=== PATIENT | male | born 1965 ===

== ENCOUNTER 2025-01-01 10:16 | Outpatient (AMB) | payer OTHER, SELFPAY ==
--- OUTSIDE RECORDS SUMMARY | 2024-12-30 09:15 | XMS_ITS | Encounter Summary ---
Author Organization [facility] Address [address] [place] [address] Care Team Providers Care Audio Visual Arts Director Name Role Phone Isis Hammer MD Primary Care Provider [phone] Reason for Visit * Consultation (Urgent) - Authorized Specialty Diagnoses / Procedures Referred By Gladys valencia Referred To Contact Occupational Therapy Diagnoses Surgery follow-up Right lateral epicondylitis Paula Donahue PA [address] [place] [address] Phone: tel: fax: Referral ID Status Reason Start Date Expiration Date Visits Requested Visits Authorized [id number] Authorized Specialty Services Required 12/11/2024 12/11/2025 1 20 Encounter Details Date Type Department Care Team ([facility] st Contact Info) Description 12/30/2024 9:15 AM EDT Treatment [facility] Occupational Therapy [address] [phone] Dinorah Araiza COTA/L Surgery follow-up (Primary Dx); Right lateral epicondylitis Social History Tobacco Use Types Packs/Day Years Used Date Smoking Tobacco: Never Smokeless Tobacco: Never Alcohol Use Standard Drinks/Week Comments No 0 (1 standard drink = 0.6 oz pur e alcohol) Housing Instability Answer Date Recorde d Are you worried that in the next 2 months you may not have stable housing? No 11/13/2024 Food Access & Nutrition Answer Date Rec orded Do you have access to a vari ety of food including fruits and vegetables? No 11/13/2024 Health Literacy Answer Date Recorded How often do you need to hav e someone help you when you read instructions, pamphlets, or other written material from your doctor or pharmacy? Never 11/13/2024 Caregiver: How often do you need to have someone help you when you read instructions, pamphlets, or other written material from your doctor or pharmacy? Not on file 11/13/2024 Financial Risk Answer Date Recorded How hard is it for you to pa y for the very basics like food, housing, medical care, and air conditioning / heating? Not very hard 11/13/2024 Transportation Answer Date Recorded Has the lack of transportati on kept you from meetings, work, or from getting things needed for daily living? No Has the lack of transportati on kept you from medical appointments or from getting medications? No 11/13/2024 Social Isolation Answer Date Recorded How often do you feel lonely or isolated from th ose around you? Never 11/13/2024 Food Risk Answer Date Recorded Within the past 12 months we worried whether our food would run out before we got money to buy more. Never true 11/13/2024 Within the past 12 months th e food we bought just didn't last and we didn't have money to get more. Never true 11/13/2024 Dependent Care Answer Date Recorded Do you need help finding or paying for care for your loved ones. For example, early childhood associate or elderly care for an older adult? No 11/13/2024 Education Answer Date Recorded Do you think completing more education or training, like finishing a GED, going to college, or learning a trade, would be helpful for you? No 11/13/2024 Employment and Income Answer Date Recor ded During the last four weeks, have you been actively looking for work? No 11/13/2024 Living Situation Answer Date Recorded What is your living situation? Unrecognized valu e 11/13/2024 Interpersonal Safety Answer Date Record ed Physical Abuse Unrecognized value 11/26/2024 Verbal Abuse Unrecognized value 11/26/2024 Sex and Gender Information Value Date Recorded Sex Assigned at Male 04/07/2023 10:17 AM EST Legal Sex Male 8:50 AM EST Gender Identity Male 04/07/2023 10:17 AM EST Sexual Orientation Straight 04/07/2023 10 :17 AM EST documented as of this encounter Progress Notes * ROSE Ponce 12/30/2024 9:15 AM EDT [facility] - Outpatient OCCUPATIONAL THERAPY DAILY TREATMENT NOTE Date: 12/30/2024 Visit Number: [id number] Patient Name: Johny Carrillo : 1965 Age: 59 y.o. Gender: male Diagnosis: ICD-10-CM ICD-9-CM 1. Surgery follow-up Z09 V67.00 2. Right lateral epicondylitis M77.11 726.32 Date of Onset: 12/05/2024 Referring Provider: Paula Donahue PA Insurance: [facility] / Plan: [facility] / Product Type: *No Product type* / Language: Pt. speaks english as preferred language, however declines spanish medical interpreter Medications: Medications Ordered Prior to Encounter[1] Allergies: has no known allergies. Precautions: ROM, sling for comfort , minimize Wbing Is the patient at Risk for Falls:N SUBJECTIVE Subjective Report: I use the sling sometimes for outside, but not all them time. Chart Reviewed: Yes Pain: 08/26 TREATMENT INTERVENTION Procedures: Modalities- U/S to R lateral elbow. 0.5 at 50% 3.3 MHz, x 8 minutes. Therex- wrist flex/ext, pro/sup -Shoulder retraction, backwards circles 3x10 -scar massage -towel slides on the way for ext/flex, circles, side to side 3x10- educated to perform for HEP for increased ROM. Theract- reaching for silverware outside base of support to increase reach/ROM and placing into tray -opening cabinet taking out bowl, and closing cabinet. Repeated x10 for entire stack of bowls. For functional carryover of home management tasks. No increase in pain noted however fatigued. Pain Reassessment: no change- offered ice at end of session, patient declined. Assessment/Response To Treatment: Good Patient tolerated session well, no increase in pain throughout however fatigued at end of session. Patient Education: Education provided: Yes Education Provided To: Patient utilizing Explanation mode(s) of education Response to Education: Good PLAN POC Development/Review: No Change in the Plan of Care; Participants: Patient Equipment Recommended: none; Equipment Provided: none Total Treatment Time: 45 TOTAL TREATMENT TIME: 45 Minutes Documentation completed by ROSE Ponce [1] Current Outpatient Medications on File Prior to Visit Medication Sig Dispense Refill acetaminophen (TYLENOL 8 HOUR) 650 mg 8 hr tablet Take 1 tablet (650 mg total) by mouth every 8 (eight) hours if needed for mild pain. Do not crush, chew, or split. 30 tablet 0 hydroCHLOROthiazide (MICROZIDE) 12.5 mg capsule Take 1 capsule (12.5 mg total) by mouth 1 (one) time each day in the morning. 90 capsule 1 losartan (COZAAR) 50 mg tablet Take 1 tablet (50 mg total) by mouth 1 (one) time each day. 90 tablet 1 omeprazole (PriLOSEC) [address] capsule Take 1 capsule (20 mg total) by mouth 1 (one) time each day.90 capsule 1 sertraline (ZOLOFT) 100 mg tablet Per [address] SUMAtriptan (IMITREX) 50 mg tablet 1 tablet (50 mg total). tamsulosin (FLOMAX) 0.4 mg 24 hr capsule TAKE 1 CAPSULE IN THE EVENING 90 capsule 1 traZODone (DESYREL) 100 mg tablet Per [address] No current facility-administered medications on file prior to visit. documented in this encounter Plan of Treatment Upcoming Encounters Date Type Department Care Team (Late st Contact Info) Description 01/06/2025 11:15 AM EDT Office Visit Orthopedic Surgery - [place] [address] [facility] [address] [place] [phone] Betsy Eller MD [address] [place] [phone] 03/18/2025 8:45 AM EST Office Visit Adult Medicine [address] [phone] Isis Hammer MD [address] [place], [place] documented as of this encounter Goals Goal Patient Goal Type Associated Problems Recent Progress Patient-Stated? Author OT pt goals General Yes Allie Leiva OT Note: To be able to use R arm normally OT STGs - 6 visits General Yes Allie Leiva OT Note: 1- pt will report increased function and decreased symptoms as seen by a 15 point improvement in the QD 2- pt will demo full AROM at the elbow 3- pt will demo at least 120 sh flex/abd for reaching 4- pt will demo at least a 15# news camera person to open containers OT LTGs 12 visits General Yes Allie Leiva OT Note: 1- pt will report increased function and decreased symptoms as seen by a QD of less than 20 2- pt will be able to carry a shopping demo adequate strength with elbow flexion 3- pt will demo WFL shoulder ROM/strength to reach to put clothes/dishes away 4- pt will demo at least 50% news camera person as compared to the L dominant hand documented as of this encounter Visit Diagnoses Diagnosis Surgery follow-up- Primary Right lateral epicondylitis documented in this encounter Additional Health Concerns Assessment Noted Time PHQ-9 Depression Total Score: 0 11/14/19 25 8:23 AM EDT documented as of this encounter Care Teams Audio Visual Arts Director Relationship Specialty Start Date End Date Isis Hammer MD [address], [place] PCP - General 05/26/22 documented as of this encounter
--- NOTE | 2025-01-01 10:26 | A.OFFVIS_ITS ---
Intake Visit Reasons: 6M Migraine Assistant Auditor Required: Yes Assistant Auditor Name: #[id number] Allergies No Known Allergies Allergy (Verified 01/01/25 10:26) Medication List - Last Reconciled 01/01/25 by Floridalma Cardenas CNP hydrochlorothiazide 12.5 mg PO QAM hydroxyzine HCl 25 mg PO BID PRN losartan 50 mg PO DAILY omeprazole 20 mg PO DAILY sertraline 100 mg PO DAILY sildenafil 50 mg PO DAILY sumatriptan succinate 50 mg PO tamsulosin mg PO trazodone 100 mg PO BEDTIME HPI Comments Details: 59-year-old man with hypertension, insomnia, depression, and migraines. He had family history of aneurysm in his younger brother and in one sister. He had CTA of brain at [facility] in June 2023 which was okay. He was doing okay.?He had few migraines a month, about 2x/month. He was using sumatriptan as needed which helped. Mood was okay. Sleep was okay. [facility] Medical History (Updated 01/01/25 @ 10:30 by Floridalma Cardenas CNP) Insomnia Depression GERD (gastroesophageal reflux disease) Hypertension Family History (Updated 01/01/25 @ 10:32 by Floridalma Cardenas CNP) Brother Cerebral aneurysm Sister Cerebral aneurysm Review of Systems Const Denies chills, Denies daytime sleepiness, Denies difficulty sleeping, Denies fatigue, Denies fever(s), Denies frequent falls, Reports headache(s), Denies increased appetite, Denies poor appetite, Denies snoring, Denies weakness, Denies weight gain and Denies weight loss Eyes Denies loss of vision ENT Denies vertigo, Denies dizziness and Reports headache(s) Card Denies chest pain at rest, Denies chest pain with activity, Denies syncope, Denies leg edema and Denies palpitations Resp Denies snoring GI Denies constipation, Denies heartburn, Denies diarrhea and Denies nausea Denies urinary frequency, Denies urinary incontinence and Denies urinary urgency Musc Denies abnormal gait, Denies numbness and Denies tingling Skin/Breast Denies dry skin and Denies rash Neuro Denies abnormal gait, Denies vertigo, Denies dizziness, Denies syncope, Denies frequent falls, Reports headache(s), Denies lack of coordination, Denies loss of vision, Denies memory loss, Denies numbness, Denies restless legs, Denies seizure-like activity, Denies tingling, Denies paresthesias, Denies tremor(s) and Denies weakness Psych Reports anxiety, Reports depression, Denies auditory hallucinations, Denies memory loss, Denies visual hallucinations and Denies suicidal ideation Endo Denies fatigue and Denies palpitations Physical Exam Const Other: General Appearance:? normal, in no acute distress. Skin:? no rashes, no significant birthmarks. Heart:? S1, S2 normal, no murmurs. Lungs:? clear anteriorly and posteriorly. Extremities:? no edema. Psych:? alert, oriented, cognitive function intact, cooperative with exam. Neuro Other: Mental Status:?Normal attention, orientation, memory and affect.? Cranial Nerves:?Pupils are equal, round and reactive to light. External occular muscles are intact. Visual gee are full. Face is symmetrical. Facial sensations are normal. Tongue is midline. Palate elevates symmetrically. Shoulder shrugging is normal. Hearing to bedside conversation is normal. Sensory Exam:?....? Coordination:?No ataxia,?no titubation.? Gait Exam: Within normal limits. Cerebellar Signs:?[id number] is okay. Extrapyramidal System:?No tremor, rigidity with normal facial expressions.? Pronator Drift:?Not present.? Involuntary Movements:?No tremors seen.? Speech:?Normal.? Results Reviewed Results Reviewed: CT brain WO at [facility] in Apr 2022: Mild cerebellar atrophy CTA brain at [facility] in Jun 2023: WNL Assessment & Plan Assessment & Plan (1) Migraine without aura: Code(s): G43.009 - Migraine without aura, not intractable, without status migrainosus Category: Medical Qualifiers: Status migrainosus presence: without status migrainosus Intractability: not intractable Qualified Code(s): G43.009 - Migraine without aura, not intractable, without status migrainosus Plan: Continue sumatriptan 50mg 1 tablet as needed for migraines. (2) Family history of cerebral aneurysm: Comment: CTA of brain at [facility] in June 2023 was okay Code(s): Z82.49 - Family history of ischemic heart disease and other diseases of the circulatory system Category: Medical Plan . Medications: New sumatriptan succinate take 1 tab at onset of headache; if no relief may repeat 1 tab after at least 2 hrs; PO 10 tabs 5RF 30 days Discontinued sumatriptan succinate Discontinued Reason: Order 50 mg PO Coding Level of Care Code Est Pt Level 3 (35855) Diagnoses Migraine without aura and without status migrainosus, not intractable G43.009 Status migrainosus presence: without status migrainosus Intractability: not intractable Family history of cerebral aneurysm Z82.49
--- OUTSIDE RECORDS SUMMARY | 2025-01-01 12:40 | XMS_ITS | Clinical Summary ---
Author Organization [facility] Address [address] [place] [address] Care Team Providers Care Rubber Flap Tuber Machine Operator Name Role Phone Milton Parsons MD Primary Care Provider [phone] Allergies No known active allergies Medications Medication Sig Dispensed Refills Start Date End Date Status losartan (COZAAR) tablet 50 mg Take 50 mg by mouth daily. 0 Active omeprazole (PRILOSEC) 20 MG capsule Take 20 mg by mouth daily. 0 Active meloxicam (MOBIC) 15 MG tablet TOME JOANNA TABLETA POR VIA ORAL TODOS [place] 0 10/03/2016 Active sertraline (ZOLOFT) 50 MG tablet TAKE 1/2 TAB BY MOUTH ONCE DAILY FOR 1 WEEK THEN 1 TAB BY MOUTH ONCE DAILY 5 01/02/2019 Active naproxen (NAPROSYN) 500 MG tablet TOME JOANNA TABLETA POR V?A ORAL DOS VECES AL D?A CUANDO SEA NECESARIO FOR PAIN 0 11/05/2018 Active losartan-hydrochloro thiazide (HYZAAR) 50-12.5 MG per tablet Take 1 tablet by mouth. 0 11/25/2018 Active traZODone (DESYREL) 50 MG tablet TOME JOANNA TABLETA TODOS LOS D? AL ACOSTARSE CUANDO SEA NECESARIO 2 02/07/2019 Active naproxen (NAPROSYN) 500 MG tablet Take 1 tablet (500 mg total) by mouth 2 (two) times a day with meals. 60 tablet 2 02/24/2019 Active Active Problems Problem Noted Date Diagnosed Date Chronic right shoulder pain 04/01/2018 Overweight (BMI 25.0-29.9) 05/30/2017 Complete tear of right rotator cuff 12/19/2016 Functional diarrhea 03/15/2009 Overview: Overview: Negative work up 2008 Essential hypertension 01/03/2006 GERD (gastroesophageal reflux disease) 6 Family History Medical History Relation Name Comments Diabetes Brother Diabetes Mother Diabetes Sister Relation Name Status Comments Brother high cholestero l Mother high cholestero l Sister high cholestero l Social History Tobacco Use Types Packs/Day Years Used Date Smoking Tobacco: Never Smokeless Tobacco: Never Alcohol Use Standard Drinks/Week Comments No 0 (1 standard drink = 0.6 oz pur e alcohol) Sex and Gender Information Value Date Recorded Sex Assigned at Not on file Gender Identity Not on file Sexual Orientation Not on file Job Start Date Occupation Industry Not on file Not on file Not on file Last Filed Vital Signs Vital Sign Reading Time Taken Comments Blood Pressure 141/93 04/05/2016 11:09 AM EST Pulse 65 04/05/2016 11:09 AM EST Temperature 36 C (96.8 F) 04/05/2016 10:38 AM EST Respiratory Rate 16 04/05/2016 11:09 AM EST Oxygen Saturation 96% 04/05/2016 11:09 AM EST Inhaled Oxygen Concentration - - Weight 76.2 kg (168 lb) 04/21/2019 8:56 AM EST Height 165.1 cm (5' 5 ) 04/21/2019 8:56 AM EST Body Mass Index 27.96 04/21/2019 8:56 AM EST Plan of Treatment Health Maintenance Due Date Last Done Comments Hepatitis B Vaccines (1 of 3 - 3-dose series) 1965 Hepatitis C Screening 1965 COVID-19 Vaccine (#1) 1965 Depression Screening 1977 BMI Counseling 1983 Preventative Health Evaluation 1983 Colon Cancer Screening (Colonoscopy) 2010 Shingrix-Zoster Vaccine (1 of 2) 2015 DTap / Tdap / Td (2 - Td or Tdap) 03/29/2017 03/29/2007 Influenza Vaccine (#1) 2024 9, 01/01/2018, 12/30/2015, Additional history exists Pneumococcal Vaccine Aged Out No long er eligible based on patient's age to complete this topic RSV Ped < 20 months Aged Out No longe r eligible based on patient's age to complete this topic Medical Devices Implanted Type Area Hand Paster Device Identifier Shelf Expiration Date Model / Serial / Lot [place] Sut 5.5mm Fullthrd Med Insite Preld Frc Fbr Sprt Peek - [id number] - [id number] Implanted:Qty : 1 on 04/05/2016 by Tramaine Khan MD at [facility] and Med Right: Shoulder [employer] 02/15/2017 [id number] / / [id number] Care Teams Rubber Flap Tuber Machine Operator Relationship Specialty Start Date End Date Milton Parsons MD [address] [place] [address] PCP - General Internal Medicine 03/31/16
--- OUTSIDE RECORDS SUMMARY | 2025-01-01 12:40 | XMS_ITS | Clinical Summary ---
Author Organization 175 [facility] Address [address] [place] [address] Phone Care Team Providers Care Site Safety Representative Name Role Phone Isis Hammer MD Primary Care Provider [phone] Allergies No known active allergies Medications sertraline (ZOLOFT) 100 mg tablet Per [address] 0 Active traZODone (DESYREL) 100 mg tablet Per [address] 0 Active SUMAtriptan (IMITREX) 50 mg tablet 1 tablet (50 mg total). 4 Active tamsulosin (FLOMAX) 0.4 mg 24 hr capsuleIndication s:Benign prostatic hyperplasia with lower urinary tract symptoms TAKE 1 CAPSULE IN THE EVENING 90 capsule 1 5 Active acetaminophen (TYLENOL 8 HOUR) 650 mg 8 hr tabletIndications :Right lateral epicondylitis Take 1 tablet (650 mg total) by mouth every 8 (eight) hours if needed for mild pain. Do not crush, chew, or split. 30 tablet 5 Active hydroCHLOROthiazi de (MICROZIDE) 12.5 mg capsuleIndication s:Essential (primary) hypertension Take 1 capsule (12.5 mg total) by mouth 1 (one) time each day in the morning. 90 capsule 1 5 Active losartan (COZAAR) 50 mg tabletIndications :Essential (primary) hypertension Take 1 tablet (50 mg total) by mouth 1 (one) time each day. 90 tablet 1 5 Active omeprazole (PriLOSEC) [address] capsuleIndication s:Gastro-esophage al reflux disease without esophagitis Take 1 capsule (20 mg total) by mouth 1 (one) time each day. 90 capsule 1 5 Active acetaminophen (TYLENOL 8 HOUR) 650 mg 8 hr tablet Take 1 tablet (650 mg total) by mouth every 8 (eight) hours if needed for mild pain. Do not crush, chew, or split. 30 tablet 5 12/24/19 25 Discontin ued(Dupli sue order) oxyCODONE (ROXICODONE) 5 mg immediate release tablet Take 1 tablet (5 mg total) by mouth every 6 (six) hours if needed for severe pain for up to 12 doses. Max Daily Amount: 20 mg 12 tablet 5 12/24/19 25 Discontin ued(Thera py completed ) ondansetron (ZOFRAN) 4 mg tablet Take 1 tablet (4 mg total) by mouth every 8 (eight) hours if needed for nausea or vomiting for up to 7 doses. 7 tablet 5 12/24/19 25 Discontin ued(Thera py completed ) Active Problems Problem Noted Date Diagnosed Date Right lateral epicondylitis 01/29/2024 Mass of skin of right hand 12/20/2023 Left lateral epicondylitis 01/02/2022 Overview (01/29/2024): Patient reports that he had arthroscopic surgery on the left elbow about 10 or 12 years ago for lateral epicondylitis. Cyst of left kidney 03/23/2021 Chronic right shoulder pain 04/01/2018 Overweight (BMI 25.0-29.9) 05/30/2017 Functional diarrhea 03/15/2009 Overview (12/20/2023): Negative work up 2008 Essential hypertension 01/03/2006 GERD (gastroesophageal reflux disease) 6 Depression Encounters Date Type Department Care Team Description 12/30/2024 9:15 AM EDT Treatment [facility] Occupational Therapy [address] [phone] Dinorah Araiza COTA/Trevor Surgery follow-up (Primary Dx); Right lateral epicondylitis 12/25/2024 9:15 AM EDT Treatment [facility] Occupational Therapy [address] [phone] Dana Freeman, XAVI Surgery follow-up (Primary Dx); Right lateral epicondylitis 12/23/2024 3:00 PM EDT Office Visit [address] [phone] Ted Oquendo PA Arthralgia of right temporomandibular joint (Primary Dx) 12/23/2024 9:45 AM EDT Treatment [facility] Occupational Therapy [address] [phone] Dana Freeman, HURLEY Surgery follow-up (Primary Dx); Right lateral epicondylitis 12/18/2024 9:15 AM EDT Treatment [facility] Occupational Therapy [address] [phone] Dana Freeman, XAVI Surgery follow-up (Primary Dx); Right lateral epicondylitis 12/16/2024 10:00 AM EDT Treatment [facility] Occupational Therapy [address] [phone] Dana Freeman, XAVI Surgery follow-up (Primary Dx); Right lateral epicondylitis 12/12/2024 1:30 PM EDT Evaluation [facility] Occupational Therapy [address] [address] Allie Leiva, OT Surgery follow-up; Right lateral epicondylitis 12/12/2024 Plan of Care Documentation [facility] Occupational Therapy [address] [phone] 12/11/2024 Telephone Orthopedic Surgery - [place] [address] [address] [phone] Betsy Eller MD 12/05/2024 11:30 AM EDT Office Visit Orthopedic Surgery - [place] 175 [facility] [address] [place] [phone] Paula Donahue PA Surgery follow-up (Primary Dx) 11/26/2024 10:33 AM EDT Anesthesia Event [facility] Main OR [address] [place] [address] Miesha Mar MD Chang, Ling [facility] 11/26/2024 10:30 AM EDT - 11/26/2024 12:30 PM EDT Surgery [facility] Main OR [address] [place] [address] Betsy Eller MD Right Lateral Epicondyle Debridement elbow [93636 (CPT ) +1 more] 11/26/2024 8:56 AM EDT - 11/26/2024 2:24 PM EDT Hospital Encounter [facility] Main OR [address] [place] [address] Betsy Elelr MD Right lateral epicondylitis Discharge Disposition: Home or Self Care 11/26/2024 7:20 AM EDT - 11/26/2024 11:59 PM EDT Hospital Encounter [facility] Xray [address] [place] [phone] Pain Discharge Disposition: Home or Self Care 11/20/2024 7:30 AM EDT - 11/20/2024 11:59 PM EDT Hospital Encounter Radiology Department - [address] [phone] Arthralgia of right temporomandibular joint Discharge Disposition: Home or Self Care 11/13/2024 9:02 AM EDT - 11/13/2024 11:59 PM EDT Hospital Encounter XRAY - [address] [phone] Arthralgia of right temporomandibular joint Discharge Disposition: Home or Self Care 11/13/2024 8:00 AM EDT Office Visit Adult Medicine [address] [phone] Isis Hammer MD PE (physical exam), annual (Primary Dx); Essential (primary) hypertension; Gastro-esophageal reflux disease without esophagitis; Arthralgia of right temporomandibular joint 11/03/[address] [facility] 250 175 [facility] [address] [place] [phone] Betsy Eller MD 11/03/[address] [facility] 250 175 [facility] [address] [place] [phone] Betsy Eller MD 10/31/2024 9:15 AM EDT Office Visit Orthopedic [facility] 175 [facility] [address] [place] [phone] Betsy Eller MD Right lateral epicondylitis (Primary Dx) from Last 3 Months Immunizations Immunization Administration Dates Next Due Influenza Quadravalent, MDCK , 0.5ml, preservative free (Flucelvax) 6mo and older 11/22/2022,12/22/2021,01/01/2018 Influenza Quadravalent, MDCK , 0.5ml, with preservative (Flucelvax) 6mo and older 11/25/2018 Influenza Quadrivalent, 0.5m l, preservative free (Fluarix; FluLaval; Fluzone) ages 6mo and older (Afluria) 3yo and older 12/25/2020 Influenza trivalent, MDCK, 0 .5mL, preservative free (Flucelvax) 6mo and older 11/28/2023 Influenza trivalent, with preservative (Fluzone; Afluria) 6mo and older 01/17/2020,12/30/2015,11/27/2014,2013,01/01/2013,12/20/2011,01/11/2011,0 12/09/2009,12/18/2008,12/18/2007, 007 Influenza, Unspecified 03/05/2022,12/31/2020 Pneumococcal conjugate 20 va lent (Prevnar 20, PCV 20) 2mo and older 04/28/2024 Td Tetanus diptheria (Tdvax) 7yo and older 05/30/2017 Tdap Tetanus diptheria acell ular pertussis (Boostrix; Adacel) 7yo and older 04/28/2024,03/29/2007 Zoster recombinant (Shingrix ) 19yo and older 08/01/2022,01/24/2022 Surgical History Surgery Date Site/Laterality Comments ELBOW SURGERY Left PROCEDURE: HISTORICAL ELBOW SURGERY ESOPHAGOGASTRODUODENOSCOPY 03/15/2009 PROCEDURE: HI EGD TRANSORAL BIOPSY SINGLE/MULTIPLE; COMMENT: duodenal bx: Normal. COLONOSCOPY W/ BIOPSIES 03/15/2009 PROCEDURE: HI COLONOSCOPY W/BIOPSY SINGLE/MULTIPLE; COMMENT: random colon bx: Normal. SHOULDER SURGERY 04/05/2016 Bilateral PROCEDURE: HISTORICAL SHOULDER SURGERY; COMMENT: RTC tear; arthroscopy and acromioplasty Medical History Medical History Date Comments GERD (gastroesophageal reflux disease) DX:GERD (gastroesophageal reflux disease) Depression Arthritis PONV (postoperative nausea and vomiting) Hypertension Migraines Family History Medical History Relation Name Comments Diabetes Brother Hypertension Brother Diabetes Mother Hyperlipidemia Mother Hypertension Mother Diabetes Sister Hypertension Sister Blindness Neg Hx Cataracts Neg Hx Glaucoma Neg Hx Macular degeneration Neg Hx Strabismus Neg Hx Relation Name Status Comments Brother Alive 10 Father not sure sicne he when he was 5 Mother Alive Sister Alive 6, Social History Tobacco Use Types Packs/Day Years Used Date Smoking Tobacco: Never Smokeless Tobacco: Never Tobacco Cessation:Counseling Given: Not Answered Alcohol Use Standard Drinks/Week Comments No 0 [...] care for your loved ones. For example, child nutrition manager or elderly care for an older adult? [...] Orientation Straight 04/07/2023 10 :17 AM EST Obstetrics History Last Filed Vital Signs Vital Sign Reading Time Taken Comments Blood Pressure 136/84 12/23/2024 2:51 PM EDT Pulse 70 12/23/2024 2:51 PM EDT Temperature 36.4 C (97.6 F) 12/23/2024 2:51 PM EDT Respiratory Rate 12 12/23/2024 2:51 PM EDT Oxygen Saturation 100% 11/26/2024 1:10 PM EDT Inhaled Oxygen Concentration - - Weight 76.2 kg (168 lb) 12/23/2024 2:51 PM EDT Height 165.1 cm (5' 5 ) 12/23/2024 2:51 PM EDT Body Mass Index 27.96 12/23/2024 2:51 PM EDT Plan of Treatment Upcoming Encounters Date Type Department Care Team (Late st Contact Info) Description 01/06/2025 11:15 AM EDT Office Visit Orthopedic Surgery - [place] 175 [facility] [address] [place] [phone] Betsy Eller MD [address] [place] [phone] 03/18/2025 8:45 AM EST Office Visit Adult Medicine [address] [phone] Isis Hammer MD [address] [place] [phone] Health Maintenance Due Date Last Done Comments Hepatitis B Vaccines (1 of 3 - 19+ 3-dose series) 01/22/1984 COVID-19 Vaccine (2023- season) 2024 Hypertension/CHF/CAD Annual BMP Blood Test 11/13/2025 11/13/2024, 05/15/2024, 01/01/2024, Additional history exists Social Influencers of Health Screening 11/13/2025 11/13/2024 Cholesterol Screening (Lipid Panel) 05/15/2029 05/15/2024, 01/11/2023 Colorectal Cancer Screening: Colonoscopy 07/30/2030 07/30/2020, 07/30/2020 Medicare Annual Wellness Visit 11/13/2030 Postponed from 02/23/2022 (Not clinically appropriate to address at this time) DTaP,Tdap,and Td Vaccines (4 - Td or Tdap) 04/28/2034 04/28/2024, 05/30/2017, 03/29/2007 RSV Immunization Adult Patients (1 - 1-dose 75+ series) 01/22/2040 HIV Screening Completed 04/18/2011 Hepatitis C Screening Completed 04/13/2014 Zoster Vaccines Completed 08/01/2022, 01/24/2022 Pneumococcal Vaccine: 50+ Years Completed 04/28/2024 Depression Screening Completed 11/13/2024, 01/12/20 23 Influenza Vaccine Completed 11/20/2024, , 11/22/2022, Additional history exists HIB Vaccines Aged Out No longer eligi ble based on patient's age to complete this topic HPV Vaccines Aged Out No longer eligi ble based on patient's age to complete this topic Hepatitis A Vaccines Aged Out No long er eligible based on patient's age to complete this topic IPV Vaccines Aged Out No longer eligi ble based on patient's age to complete this topic MMR Vaccines Aged Out No longer eligi ble based on patient's age to complete this topic Meningococcal ACWY Vaccine Aged Out N o longer eligible based on patient's age to complete this topic Meningococcal B Vaccine Aged Out No l onger eligible based on patient's age to complete this topic RSV Immunization Patients Under 20 months Aged Out No longer eligible b ased on patient's age to complete this topic Varicella Vaccines Aged Out No longer eligible based on patient's age to complete this topic Goals Goal Patient Goal Type Associated Problems Recent Progress Patient-Stated? Author OT pt goals General Yes Allie Leiva, OT Note: To be able to use R arm normally OT STGs - 6 visits General Yes Allie Leiva, OT Note: 1- pt will report increased function and decreased symptoms as seen by a 15 point improvement in the QD 2- pt will demo full AROM at the elbow 3- pt will demo at least 120 sh flex/abd for reaching 4- pt will demo at least a 15# loader magazine grinder to open containers OT LTGs 12 visits [...] 4- pt will demo at least 50% loader magazine grinder as compared to the L dominant hand Medical Devices Implanted Type Area Yarding Supervisor Device Identifier Shelf Expiration Date Model / Serial / Lot [place] Sut Quick+ Mini Orthcrd #0 Orthocord W/Drillbit - Sn/A - [id number] Implanted:Qty: 1 on 11/26/2024 by Betsy Eller MD at [facility] [employer] Sports Med Right: Arm JNJ DEPUY MITEK 07/17/2027 [id number] / N/A / [id number] Procedures Procedure Name Priority Date/Time Associated Diagnosis Comments TISSUE EXAM Routine 11/26/2024 11:30 AM EDT Right lateral epicondylitis TH AN LMA(NO CHARGE) Routine 11/26/2024 10:49 AM EDT HI TENOTOMY ELBOW LATERAL/MEDIAL DEBRIDEMENT SOFT TISSUE/BONE OPEN 11/26/2024 10:33 AM EDT Right lateral epicondylitis Case Notes Mini C-Arm available (hold drape), 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 not open mini c-arm drape (it is prn)18- lvm to c/b HI TENOTOMY ELBOW LAT/MED DEBR SOFT TISS/BONE OPEN TENDON REPR/REATTACHMENT 11/26/2024 10:33 AM EDT Right lateral epicondylitis Case Notes Mini C-Arm available (hold drape), 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 not open mini c-arm drape (it is prn)18- lvm to c/b US HEAD NECK SOFT TISSUE Routine 11/20/2024 7:59 AM EDT Arthralgia of right temporomandibular joint CBC WITH AUTO DIFFERENTIAL Routine 11/13/2024 9:30 AM EDT PE (physical exam), annual BASIC METABOLIC PANEL Routine 11/13/2024 9:30 AM EDT PE (physical exam), annual CBC AND DIFFERENTIAL Routine 11/13/2024 9:30 AM EDT PE (physical exam), annual PROSTATE SPECIFIC ANTIGEN SCREEN Routine 11/13/2024 9:30 AM EDT PE (physical exam), annual XR TMJ OPEN AND CLOSED BILAT Routine 11/13/2024 9:18 AM EDT Arthralgia of right temporomandibular joint LIPID PANEL WITH REFLEX TO DIRECT LDL Routine 05/15/2024 9:59 AM EST Essential (primary) hypertension DEPRESSION SCREENING Routine 01/11/2023 COLONOSCOPY Routine 07/30/2020 HEPATITIS C SCREENING Routine 04/13/2014 HIV SCREENING Routine 04/18/2011 from Last 3 Months or Most Recently Relevant to Health Maintenance Results * Tissue exam (11/26/2024 11:30 AM EDT) Final Diagnosis Right lateral epicondyle-debr idement: -FIBROTENDINOUS TISSUE WITH DEGENERATIVE CHANGES 11/27/2024 12:40 PM EDT [facility] Gross Description A. Elbow, Right, ecrb Origin: Labeled ECRB orig elbow R . Received in formalin is a 1.8 x 1.5 x 0.3 cm aggregate of rubbery, gonzalez-white to red tissue fragments, which are wrapped in paper and submitted in toto in one cassette, multiple pieces. TS 11/27/2024 12:40 PM EDT [facility] Disclaimer Unless otherwise specified, all tissue is 10% NB formalin fixed and paraffin embedded. 11/27/2024 12:40 PM EDT [facility] Tissue Right elbow region structure / Unknown 11/26/2024 11:30 AM EDT 11/26/2024 1:26 PM EDT us Betsy Eller MD LAB PATHOLOGY ORDERABLES Rachel weldon Result [facility] [address] [place] [address], * TH AN LMA(NO CHARGE) (11/26/2024 10:49 AM EDT) Raven Chen CRNA - 11/26/2024 10:49 AM EDT Raven Churchill CRNA 11/26/2024 10:50 AM General Information and Staff Patient location during procedure: OR Performed by: Raven Churchill CRNA Authorized by: Miesha Mar MD Intubation Airway not difficult Urgency: elective Final Airway Details Number of attempts at approach: 1 Ventilation between attempts: none Number of other approaches attempted: 0 LMA Size: 4 LMA Type: Classic LMA Seal Pressure: Final airway type: LMA Indications and Patient Condition Indications for airway management: anesthesia and airway protection Spontaneous ventilation: present Sedation level: Yes Preoxygenated: yes Soft Tissue Damage: No Dentition Unchanged: Yes Patient position: neutral MILS not maintained throughout Mask difficulty assessment: 0 - not attempted Start Time: 11/26/2024 10:42 AMStop Time: 11/26/2024 10:42 AM Miesha Mar MD ANESTHESIA ORDERABLES Fin al Result * US Head Neck Soft Tissue (11/20/2024 7:59 AM EDT) Anatomical Region Laterality Modality Head and Neck Ultrasound 11/20/2024 11:3 6 AM EDT Impressions 11/20/2024 11:37 AM EDT Unremarkable exam. -------- FINAL REPORT -------- Dictated By: Ana Luisa Mckenna Dictated Date: 11/20/2024 11:36 ET Assigned Physician: Ana Luisa Mckenna Reviewed and Electronically Signed By: Ana Luisa Mckenna Signed Date: 11/20/2024 11:37 ET Workstation ID: [id number] Transcribed By: Self Edit Transcribed Date: 11/20/2024 11:36 ET Narrative 11/20/2024 11:37 AM EDT US HEAD NECK SOFT TISSUE SONO SOFT TISSUE HISTORY: Right salivary gland evaluation. Pain around TMJ. PRIORS: None. FINDINGS: Ultrasound evaluation of the area of pain indicated by the patient in the region of the right parotid gland was performed. There is no cyst or solid mass. There is no lymphadenopathy. Procedure Note Ana Luisa Mckenna MD - 11/20/2024 US HEAD NECK SOFT TISSUE SONO SOFT TISSUE HISTORY: Right salivary gland evaluation. Pain around TMJ. PRIORS: None. FINDINGS: Ultrasound evaluation of the area of pain indicated by thepatient in the region of the right parotid gland was performed. There is no cyst or solid mass. There is no lymphadenopathy. IMPRESSION: Unremarkable exam. -------- FINAL REPORT -------- Dictated By: Ana Luisa Mckenna Dictated Date: 11/20/2024 11:36 ET Assigned Physician: Ana Luisa Mckenna Reviewed and Electronically Signed By: Ana Luisa Mckenna Signed Date: 11/20/2024 11:37 ET Workstation ID: [id number] Transcribed By: Self Edit Transcribed Date: 11/20/2024 11:36 ET us Isis Hammer MD [facility] US PROCEDURES Final Result * Prostate specific antigen screen (11/13/2024 9:30 AM EDT) PSA 0.52 0.00 - 4.00 ng/mL LAB CHEMISTRY METHOD 11/13/2024 2:50 PM EDT [facility] Blood Venous blood specimen / Unknown Venipuncture / Unknown 11/13/2024 9:30 AM EDT 11/13/2024 9:30 AM EDT Narrative [facility] - 11/13/2024 2:50 PM EDT The Siemens Advia Centaur Chemiluminescent Immunoassay is used. Results obtained with different assay methods or kits cannot be used interchangeably. Results cannot be interpreted as absolute evidence of the presence or absence of malignant disease. us Isis Hammer MD LAB BLOOD ORDERABLES Final Resul t [facility] [address] [place] [address], [place] [phone] * (ABNORMAL) CBC auto differential (11/13/2024 9:30 AM EDT) [facility] WBC 4.3(L) 4.8 - 10.8 K/mcL LAB HEMETOLOGY METHOD 11/13/2024 12:40 PM [facility] RBC 4.90 4.50 - 5.50 M/mcL LAB HEMETOLOGY METHOD [facility] Hemoglobin 16.2 13.5 - 17.5 g/dL LAB HEMETOLOGY METHOD 11/13/2024 12:40 PM EDT [facility] Hematocrit 46.6 42.0 - 54.0 % LAB HEMETOLOGY METHOD 11/13/2024 12:40 PM [facility] MCV 95.7 79.0 - 98.0 FL LAB HEMETOLOGY METHOD 11/13/2024 12:40 PM [facility] MCH 33.3(H) 27.0 - 32.0 pcg LAB HEMETOLOGY METHOD 11/13/2024 12:40 PM [facility] MCHC 34.8 32.0 - 37.0 g/dL LAB HEMETOLOGY METHOD 11/13/2024 12:40 PM [facility] RDW 13.0 11.0 - 15.0 % LAB HEMETOLOGY METHOD 11/13/2024 12:40 PM [facility] Platelets 146 130 - 400 K/mcL LAB HEMETOLOGY METHOD 11/13/2024 12:40 PM [facility] MPV 12.1(H) 7.0 - 11.0 FL LAB HEMETOLOGY METHOD 11/13/2024 12:40 PM [facility] NRBC 0.0 <1.0 % LAB HEMETOLOGY METHOD 11/13[facility]2024 12:40 [facility] NRBC Absolute 0.00 <0.10 K/[facility] LAB HEMETOLOGY METHOD 11/13/2024 12:40 PM EDT [facility] Neutrophils Relative 57.7 % LAB HEMETOLOGY METHOD 11/13/2024 12:40 PM EDT [facility] Lymphocytes Relative 27.3 % LAB HEMETOLOGY METHOD 11/13/2024 12:40 PM EDT [facility] Monocytes Relative 11.7 % LAB HEMETOLOGY METHOD 11/13/2024 12:40 PM EDT [facility] Eosinophils Relative 2.6 % LAB HEMETOLOGY METHOD 11/13[facility]2024 12:40 [facility] Basophils Relative 0.5 % LAB HEMETOLOGY METHOD 11/13/2024 12:40 PM [facility] Immature Granulocytes Relative 0.2 % LAB HEMETOLOGY METHOD 11/13/2024 12:40 PM [facility] Neutrophils Absolute 2.47 1.50 - 7.00 K/mcL LAB HEMETOLOGY METHOD 11/13/2024 12:40 PM [facility] Lymphocytes Absolute 1.17 1.00 - 5.00 K/mcL LAB HEMETOLOGY METHOD 11/13/2024 12:40 PM [facility] Monocytes Absolute 0.50 0.20 - 1.00 K/mcL LAB HEMETOLOGY METHOD 11/13/2024 12:40 PM [facility] Eosinophils Absolute 0.11 0.00 - 0.50 K/mcL LAB HEMETOLOGY METHOD 11/13/2024 12:40 PM [facility] Basophils Absolute 0.02 0.00 - 0.20 K/mcL LAB HEMETOLOGY METHOD 11/13/2024 12:40 PM [facility] Immature Granulocytes Absolute 0.01 0.00 - 0.03 K/mcL LAB HEMETOLOGY METHOD 11/13/2024 12:40 PM [facility] Blood Venous blood specimen / Unknown Venipuncture / Unknown 11/13/2024 9:30 AM EDT 11/13/2024 9:30 AM EDT us Isis Hammer MD LAB BLOOD ORDERABLES Final Resul t [facility] [address] [place] [address], * Basic metabolic panel (11/13/2024 9:30 AM EDT) Sodium 139 133 - 145 mmol/L LAB CHEMISTRY METHOD 11/13/2024 1:44 PM [facility] Potassium 3.7 3.5 - 5.5 mmol/L LAB CHEMISTRY METHOD 11/13/2024 1:44 PM [facility] Chloride 107 96 - 110 mmol/L LAB CHEMISTRY METHOD 11/13/2024 1:44 PM [facility] CO2 27 21 - 32 mmol/L LAB CHEMISTRY METHOD 11/13/2024 1:44 PM [facility] Anion Gap 5 3 - 11 LAB CHEMISTRY METHOD 11/13/2024 1:44 PM [facility] Glucose 97 70 - 100 mg/dL LAB CHEMISTRY METHOD 11/13/2024 1:44 PM [facility] BUN 10 5 - 25 mg/dL LAB CHEMISTRY METHOD 11/13/2024 1:44 PM [facility] Creatinine 0.89 0.70 - 1.30 mg/dL LAB CHEMISTRY METHOD 11/13/2024 1:44 PM [facility] eGFR 99 >=60 mL/min/1. 73m2 LAB CHEMISTRY METHOD 11/13/2024 1:44 PM [facility] Comment:Calculation based on the Chronic Kidney Disease Epidemiology Collaboration (CKD-EPI) equation refit without adjustment for race. BUN/Creatinine Ratio 11.2 LAB CHEMISTRY METHOD 11/13/2024 1:44 PM EDT [facility] Calcium 9.2 8.5 - 10.5 mg/dL LAB CHEMISTRY METHOD 11/13/2024 1:44 PM EDT [facility] Blood Venous blood specimen / Unknown Venipuncture / Unknown 11/13/2024 9:30 AM EDT 11/13/2024 9:30 AM EDT us Isis Hammer MD LAB BLOOD ORDERABLES Final Resul t [facility] [address] [place] [address], * XR TMJ Open and Closed bilat (11/13/2024 9:18 AM EDT) Anatomical Region Laterality Modality Head and Neck Bilateral Radiographic Hseridan ging 11/14/2024 10:0 0 AM EDT Impressions 11/14/2024 10:23 AM EDT No TMJ abnormality detected. Consider MRI of the TMJs for better evaluation of TMJ pathology. POS - [id number] -------- FINAL REPORT -------- Dictated By: Agnes Feng Dictated Date: 11/14/2024 10:00 ET Assigned Physician: Agnes Feng Reviewed and Electronically Signed By: Agnes Feng Signed Date: 11/14/2024 10:23 ET Workstation ID: [id number] Transcribed By: Self Edit Transcribed Date: 11/14/2024 10:00 ET Narrative 11/14/2024 10:23 AM EDT EXAM: TMJ open and closed bilateral x-ray HISTORY: Right TMJ pain. COMPARISON: None FINDINGS: Bilateral opening closed mouth views and a Jhoan view performed. No acute fracture detected. No dislocation at the temporomandibular joints. No appreciable arthritic changes at the TMJs. No destructive bone lesion. Procedure Note Agnes Feng MD - 11/14/2024 EXAM: TMJ open and closed bilateral x-ray HISTORY: Right TMJ pain. COMPARISON: None FINDINGS: Bilateral opening closed mouth views and a Jhoan view performed. No acute fracture detected. No dislocation at the temporomandibularjoints. No appreciable arthritic changes at the TMJs. No destructive bonelesion. IMPRESSION: No TMJ abnormality detected. Consider MRI of the TMJs for betterevaluation of TMJ pathology. POS - [id number] -------- FINAL REPORT -------- Dictated By: Agnes Feng Dictated Date: 11/14/2024 10:00 ET Assigned Physician: Agnes Feng Reviewed and Electronically Signed By: Agnes Feng Signed Date: 11/14/2024 10:23 ET Workstation ID: [id number] Transcribed By: Self Edit Transcribed Date: 11/14/2024 10:00 ET us Isis Hammer MD IMG XR PROCEDURES Final Result * Lipid panel with reflex to direct LDL (05/15/2024 9:59 AM EST) Cholesterol 160 0 - 200 mg/dL LAB CHEMISTRY METHOD 05/15/2024 3:58 PM [facility] Triglycerides 84 0 - 150 mg/dL LAB CHEMISTRY METHOD 05/15/2024 3:58 PM [facility] HDL 58 >=40 mg/dL LAB CHEMISTRY METHOD 05/15/2024 3:58 PM [facility] LDL Calculated 85 0 - 100 mg/dL LAB CHEMISTRY METHOD 05/15/2024 3:58 PM [facility] VLDL Cholesterol Konrad 16.8 mg/dL LAB CHEMISTRY METHOD 05/15/2024 3:58 PM [facility] Non HDL Chol. (LDL+VLDL) 102 <145 mg/dL LAB CHEMISTRY METHOD 05/15/2024 3:58 PM [facility] Chol/HDL Ratio 2.8 0.0 - 4.4 LAB CHEMISTRY METHOD 05/15/2024 3:58 PM [facility] Blood Venous blood specimen / Unknown Venipuncture / Unknown 05/15/2024 9:59 AM EST 05/15/2024 9:59 AM EST Isis Hammer MD LAB BLOOD ORDERABLES Final Resul t [facility] ([facility]) [facility] [address] [place] [address], * Depression Screening (01/11/2023) Depression Screening abstracted Historical Provider HEALTH MAINTENANCE Final Result * Colonoscopy (07/30/2020) Pathologist [facility] Colonoscopy no interpretation , abstracted Anatomical Region Laterality Modality Other Historical Provider HEALTH MAINTENANCE Final Result * Hepatitis C Screening (04/13/2014) Pathologist [facility] Hepatitis C Screening abstracted Historical Provider HEALTH MAINTENANCE Final Result * HIV Screening (04/18/2011) [facility] HIV Screening abstracted Historical Provider HEALTH MAINTENANCE Final Result from Last 3 Months or Most Recently Relevant to Health Maintenance Insurance [facility] [employer]IC[employer] Member Subscriber Plan / Payer (Ef fective 2021-Present) Name:MAGNOLIA MESA Relation to Subscriber:Self Name:Magnolia Mccormick Payer ID:[id number] Group ID:[id number] Type:Not on file Address: [facility] [address] [id number] Advance Directives * Full Code - Default (Latest Code Status on File) Date Activated Date Inactivated Comments 11/26/2024 9:03 AM 11/26/2024 4:24 PM This is orde r is used when code status has not been discussed with the patient, or code status is otherwise unknown/unconfirmed To update the patient's code status, place a code status order. Do not modify or discontinue any currently active code status orders. Care Teams Site Safety Representative Relationship Specialty Start Date End Date Isis Hammer MD [address] [place] [phone] PCP - General 05/26/22
== END 2025-01-01 10:39 | disposition home or self-care (01) ==
PROVIDERS: PCP Internal Medicine; Referring Provider Internal Medicine; Visit Provider Registered Nurse
DX: G43.009 Migraine without aura, not intractable, without status migrainosus (principal); Z82.49 Family history of ischemic heart disease and other diseases of the circulatory system
CPT/HCPCS: 99213

== ENCOUNTER → 2025-01-01 10:16 | Outpatient (BNVA) | payer OTHER, SELFPAY | PROVIDERS: PCP Internal Medicine; Referring Provider Internal Medicine; Visit Provider Registered Nurse | DX: G43.009 Migraine without aura, not intractable, without status migrainosus (principal); Z82.49 Family history of ischemic heart disease and other diseases of the circulatory system | CPT/HCPCS: 99212 ==